=== PATIENT | male | born 1990 | race Caucasian/White ===

== ENCOUNTER 2016-03-13 05:39 | Emergency (ER) | payer BC ==
[~2016-03-13] VITALS: Ht 193 cm; Wt 106.6 kg
[~2016-03-13 05:39] MED LIST: NOMEDS XX; TESSALON PERLE100 M1 PO; TYLENOL 8 HOUR650 MG PO; VICODIN 5/500 T1 TAB PO; ZITHROMAX TRI-500 M1 PO
[2016-03-13 06:02] LABS: STREP SCREEN (RAPID) NEGATIVE
--- NOTE | 2016-03-13 06:21 | Emergency Room Report ---
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 N Clinical Suspician of Infection? N Mental Status: 1 - Regular (Normal Baseline) Sepsis Risk:Low Sepsis Risk Have you (or family members/close friends) recently traveled outside the [place]? N If Yes, where/when: Have you had exposure to infectious disease within the past month? N TB? Other? Specify: Comment The patient says for the past couple of days he has had an irritated feeling in both ears in his throat. He has clear rhinorrhea. He has minimal cough which initially was dry and now produces some minimal mucus. No fever. He says this morning he woke up gagging but did not vomit. This concerned him so he came to the emergency room. He denies sinus pain. He had one episode of diarrhea. He says he missed work today. ALLERGIES Coded Allergies: cefaclor (From [employer]) (Mild, I-RASH 03/13/16) Home Medications Reported Medications No Home Medications (NO HOME MEDICATIONS) 1 EACH XX ONCE History Medical History General CAD? No Angina: No [place]: No Hypertension? No Hyperlipidemia? No CHF? No DVT? No PE? No COPD? No Asthma? No Anemia? No GERD? No Gastric ulcers? No GI Bleed? No Hernia? No Thyroid Problems? No Hypothyroidism? No CVA? No Seizures? No Diabetes? No Renal Insuffiency? No End Stage Renal Disease? No UTI? No Stones? No BPH? No GB Disease: No Nephritic Syndrome? No Asplenia? No Hepatitis? No Sickle Cell Disease? No Arthritis? No Migraines? No Cataracts? No Glaucoma? No MRSA? No HIV? No TB? No Anxiety? No Depression? No Cancer? No More? No Immunization Hx DT/Tetanus UNKNOWN Surgical Hx Previous Surgery?Y BOTTOM LIP COSMETIC T&A LEFT ELBOW R/T INFECTION R ANKLE R/T FX X 2 Social History Smoking Hx Smoker: Never Smoker Tobacco: No Type N/A Are you/the child exposed to second-hand smoke: No Alcohol Alcohol: Yes Review of Systems All Other Systems Reviewed and Negative Constitutional denies fever ENT see HPI. Respiratory see HPI Gastrointestinal see HPI, diarrhea, denies vomiting Physical Exam Vital Signs Vital Signs Date Time Temp Pulse Resp B/P Pulse O2 O2 Flow FiO2 Ox Delivery Rate 03/13 542 97.6 72 18 143/104 96 General Appearance normal appearance, WD/WN Eye Exam - bilateral eye normal exam, bilateral eye PERRL, bilateral eye EOMI Ear, Nose, Throat hearing grossly normal, tympanic membranes normal. Throat normal without erythema or exudates. No drainage noted., sinuses nontender Neck normal inspection, non-tender, supple, full range of motion Respiratory Status Yes: trachea midline, chest symmetrical, non tender chest. No: respiratory distress. Lung Sounds bilateral: normal breath sounds, lungs clear. Cardiovascular normal exam, regular rate/rhythm, no peripheral edema, no gallop, no JVD, no murmur, no rub, normal peripheral pulses Gastrointestinal normal bowel sounds, normal exam, non tender, soft, no organomegaly Extremities normal range of motion Neurologic alert, oriented x 3 Mental status normal mood/affect Skin intact, normal color, warm/dry Lymphatic no adenopathy Medical Decision Making LABS/Meds/Orders Pt receiving controlled substance in ED? No Results/Orders Laboratory Tests 03/13/16 0544: Influenza Type A Ag NOT DETECTED, Influenza Type B Ag NOT DETECTED Current Medication Orders Sig/Tarah Start time Last Medication Dose Route Stop Time Status Admin Ondansetron HCl 4 MG ONCE ONE 03/13 06 AC PO 03/13 06 Orders Procedure Date/time Status CULTURE, THROAT 03/13 543 Active STREP SCREEN THROAT 03/13 542 Complete INFLUENZA A&B ANTIGENS 03/13 542 Complete Departure Departure Disposition DC Home or Self Care(routine) Clinical Impression Primary Impression: Viral upper respiratory infection Condition STABLE Patient Instructions DI for Viral Upper Respiratory Infection -- Adult Additional Instructions Off work today 03/13/16. Additional instructions for UPPER RESPIRATORY INFECTION: See your physician as soon as possible for further evaluation. Return immediately if you have an uncontrollable fever greater than 104 degrees, difficulty breathing or shortness of breath, persistent vomiting, or inability to swallow. Prescriptions Current Visit Scripts Ondansetron (Zofran 4MG Odt) 4 MG PO Q8HP PRN NAUSEA AND VOMITING #6 ODT Guaifenesin/Pseudoephedrne HCl (Mucinex D ER Tablet) 1 EACH PO Q12HP #20 TAB ED Critical Care Critical Care No at 0630
[2016-03-13] MEDS ORDERED: ZOFRAN ODT4 MG PO (06:27)
[2016-03-13] MEDS ORDERED: MUCINEX D ER T1 EACH PO (06:27)
[2016-03-13 06:36] VITALS: BP 143/104
== END 2016-03-13 06:36 | disposition home or self-care (01) ==
LOC: ER 05:39
PROVIDERS: Emergency Medicine
DX: J06.9 Acute upper respiratory infection, unspecified (principal)